=== PATIENT | female | born 1995 | race Caucasian/White ===

== ENCOUNTER 2018-09-26 02:09 | Outpatient (CLI) | payer BC ==
[2018-09-26 12:32] LABS: #Basophils 0.1 thou/uL (0.0-0.2); #Eosinphils 0.2 thou/uL (0.0-0.7); #Lymphocytes 1.8 thou/uL (1.20-3.40); #Monocytes 0.4 thou/uL (0.11-0.59); %Lymphocytes 33.5 % (21.0-51.0); %Monocytes 8.1 % (0.0-10.0); %Neutrophils 54.4 % (42.0-75.0); Hemoglobin 14.4 g/dL (12.0-16.0); Mean Corpuscular HGB CONC 33.5 g/dL (32.0-36.0); Mean Corpuscular Hemoglobin 30.7 pg (27.0-31.0); Mean Corpuscular Volume 91.7 fL (78.0-98.0); Mean Platelet Volume 7.9 fL (7.4-10.4); Platelet Count 264 thou/uL (130-400); RBC Distribution Width 11.5 % (11.5-14.5); Red Blood Cell (RBC) Count 4.67 mill/uL (4.20-5.40); White Blood Cell (WBC) Count 5.4 thou/uL (4.8-10.8)
[2018-09-26 12:48] LABS: BHCG - Serum Negative (NEGATIVE); Pregs Control Background? CLEAR/WHITE (CLR/WHITE); Pregs Control Bar Appear? YES (CONTROL BAR)
[2018-09-26 12:51] LABS: Anion Gap 12 mmol/L (10-20); BUN (Urea Nitrogen) 11 mg/dL (7.0-18.7); Calc. Creatinine Clearance 0 mL/min (70-130); Calcium 9.8 mg/dL (7.8-10.44); Carbon Dioxide 28 mmol/L (22-29); Chloride 107 mmol/L (98-107); Estimated GFR-MDRD Greater than 90; Glucose 97 mg/dL (70-105); Potassium 4.8 mmol/L (3.5-5.1); Sodium 142 mmol/L (136-145)
== END 2018-09-26 02:10 | disposition home or self-care (01) ==
LOC: LABBT 02:09
PROVIDERS: ATTEND Specialist
DX: Z01.812 Encounter for preprocedural laboratory examination (principal); N63.10 Unspecified lump in the right breast, unspecified quadrant
CPT/HCPCS: 80048; 84703; 85025

== ENCOUNTER 2018-09-30 06:06 | Day surgery (SDC) | payer BC ==
[2018-09-26 11:59] VITALS: BMI 28.7
[2018-09-30] MEDS ORDERED: Ketorolac Tromethamine 30 MG/ML VIAL ONE (06:39)
[2018-09-30] MEDS ORDERED: Bupivacaine/Epinephrine 0.25% 30 ML VIAL ONE (06:47)
[2018-09-30] MEDS ORDERED: Fentanyl 100 MCG/2 ML VIAL ONE (07:02)
[2018-09-30] MEDS ORDERED: Midazolam HCl 2 mg/2 ml Vial ONE (07:52)
[2018-09-30] MEDS ORDERED: Ondansetron PF 4 MG/2 ML Vial ONE (12:52)
[2018-09-30] MEDS ORDERED: Dexamethasone 20 MG/5 ML VIAL ONE (12:52)
[2018-09-30] MEDS ORDERED: Metoclopramide HCl 10 MG/2 ML VIAL ONE (12:52)
[2018-09-30] MEDS ORDERED: Lidocaine 1% PF 5 ML VIAL ONE (12:52)
[2018-09-30] MEDS ORDERED: PROPOFOL 200 MG/20 ML VIAL ONE (12:52)
--- NOTE | 2018-10-01 02:14 | OP ---
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 POSTOPERATIVE DIAGNOSIS: Right breast soft tissue mass, suspected to be a fibroadenoma. OPERATION PERFORMED: Ultrasound-guided right breast excisional biopsy. ANESTHESIA: General with laryngeal mask airway. INDICATION FOR PROCEDURE: The patient is a 22-year-old white female. 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 She presents at this time with a palpable mass in her right breast. Ultrasound characteristics are consistent with a fibroadenoma and I recommend excision. DESCRIPTION OF OPERATION: Informed consent was obtained, the patient was taken to the operating room where general anesthesia was obtained with the patient in supine position. Right breast was prepped with ChloraPrep and draped in sterile fashion. Local anesthetic was infiltrated using 0.25% Marcaine with epinephrine. Ultrasound was utilized to map the location of the tumor. It had sonographic characteristics, very typical of a fibroadenoma. It was marked in its location of the breast in a grid fashion. This was mostly subareolar, but somewhat above the areola and at the 12 o'clock radiant. A curvilinear circumareolar incision was created around the top part of the areola. Dissection was carried through skin and subcutaneous tissue and into the breast and glandular tissue. Underlying the superficial glandular tissue, I encountered an obvious fibroadenoma. This had smooth lobulated margins. It was easily dissected on its anterior and lateral aspects. Dissection was carried deeply within the breast. It was carefully dissected away from all investing tissue and removed intact. Hemostasis was maintained using electrocautery. The specimen was passed off the field. The wound was closed in layers using 3-0 and 4-0 Monocryl. Additional local anesthetic was infiltrated during closure. Dermabond was placed externally. There were no complications. Blood loss was negligible. The patient tolerated the procedure well and was taken to recovery room in stable condition. Job ID: [id number]
== END 2018-09-30 11:02 | disposition home or self-care (01) ==
LOC: SDC 06:06
PROVIDERS: ATTEND Specialist
PROC: 0HBT0ZZ Excision of Right Breast, Open Approach (ICD-10-PCS; principal; 2018-09-30)
DX: D24.1 Benign neoplasm of right breast (principal); Z79.899 Other long term (current) drug therapy
CPT/HCPCS: 88307; J0131; J1885; J2250; J3010